=== PATIENT | female | born 1990 | race Caucasian/White ===

== ENCOUNTER → 2017-03-15 | Outpatient (CLI) | payer OTHER ==
[2017-03-15 18:31] LABS: HEMATOCRIT 37.6 % (37-47); MEAN CELL VOLUME 84.3 fL (80-100); MEAN CORPUSCULAR HEMOGLOBIN 27.8 pg (25-34); PLATELET COUNT 146 K/uL (130-400); RED BLOOD COUNT 4.46 M/uL (4.2-5.4); WHITE BLOOD COUNT 3.25 K/uL (4.8-10.8)
[2017-03-15 18:39] LABS: ALT/SGPT 49 U/L (12-78); BLOOD UREA NITROGEN 11 mg/dl (7-18); BUN/CREATININE RATIO 15.7 (10-20); CALCIUM 8.9 mg/dl (8.5-10.1); CARBON DIOXIDE 29 mmol/L (21-32); CHLORIDE 103 mmol/L (98-107); CREATININE 0.69 mg/dl (0.60-1.20); GLUCOSE 84 mg/dl (70-99); POTASSIUM 4.3 mmol/L (3.5-5.1); SODIUM 138 mmol/L (136-145)
[2017-03-15 18:49] LABS: ALB/GLOB RATIO 0.9 (0.9-2); ALKALINE PHOSPHATASE 106 U/L (45-117); AST/SGOT 50 U/L (15-37); THYROID STIMULATING HORMONE 0.383 uIu/ml (0.300-4.500)
[2017-03-15 19:51] LABS: BASO ABS # 0.03 K/uL (0-0.2); BASOPHIL % 0.9 %; COMPLETE YES; EOSINOPHIL % 1.8 %; LYMPH ABS # 0.85 K/uL (1.2-3.4); LYMPHOCYTE % 26.1 %; NEUTROPHILS % 34.3 %; TEAR DROP CELLS 1+; VARIANT LYM ABS # 0.99 K/uL; VARIANT LYMPHOCYTE % 30.6 %
[2017-03-15 19:55] LABS: LYME DISEASE AB IGG NEG (NEG); LYME DISEASE AB IGM NEG (NEG)
== END | disposition home or self-care (01) ==
LOC: C.LABSPEC 10:47
PROVIDERS: ATTEND Family Medicine
DX: M25.50 Pain in unspecified joint (principal); R68.83 Chills (without fever); R51 Headache